=== PATIENT | male | born 1980 | race Caucasian/White ===

== ENCOUNTER 2024-04-15 09:54 | Emergency (ER) | payer OTHER, SELFPAY ==
--- NOTE | ~2024-04-15 | XR_ITS ---
EXAMINATION: XR chest 2V DATE: 04/15/2024 11:51 INDICATION: Shortness of breath. TECHNIQUE: Frontal and lateral views of the chest were obtained. COMPARISON: Chest CT 04/15/2024 FINDINGS: There is a 9 mm nodule in right lung middle lobe. No pleural effusion or pneumothorax. The heart size is normal. IMPRESSION: 1. 9 mm nodule in right lung middle lobe, which may be a hamartoma, granulomatous disease, or primary bronchogenic carcinoma. PET/CT or 3 month follow-up noncontrast low-dose chest CT is recommended. Reviewed, dictated and finalized at location A. IMPRESSION: 1. 9 mm nodule in right lung middle lobe, which may be a hamartoma, granulomato us disease, or primary bronchogenic carcinoma. PET/CT or 3 month follow-up nonc ontrast low-dose chest CT is recommended.
--- NOTE | ~2024-04-15 | CT_ITS ---
EXAMINATION: CTA chest PE protocol DATE: 04/15/2024 11:48 INDICATION: Dyspnea. TECHNIQUE: Computed tomography angiography (CTA) of the chest was performed with 100 mL Omnipaque-350 intravenous contrast timed to evaluate the pulmonary arteries. Coronal maximum intensity projection 3D-reconstructions were created by the technologist. Automated exposure control and iterative reconst ruction technique were employed. The dose-length product was 647.27 mGy-cm. COMPARISON: Chest 2 views 04/15/2024 FINDINGS: The lungs demonstrate mild dependent atelectasis. A calcified right lung nodule and calcifi ed right hilar lymph nodes are consistent with old granulomatous disease. There is a 9 mm nodule in r ight middle lobe. No pleural effusion. The heart size is normal. There are coronary artery calcificat ions. No pericardial effusion. Calcifications in the spleen are consistent with old granulomatous dis ease. There is no pulmonary embolus. There is mild thoracic spondylosis. IMPRESSION: 1. No pulmonary embolus. 2. 9 mm right middle lobe pulmonary nodule, which may be a hamartoma, granulomatous disease, or prima ry bronchogenic carcinoma. Consider PET/CT or 3 month follow-up noncontrast low-dose chest CT. Reviewed, dictated and finalized at location A. IMPRESSION: 1. No pulmonary embolus. 2. 9 mm right middle lobe pulmonary nodule, which may be a hamartoma, granuloma tous disease, or primary bronchogenic carcinoma. Consider PET/CT or 3 month fol low-up noncontrast low-dose chest CT.
[2024-04-15 10:06] VITALS: BP 183/106; PULSE 82; RESP 18; TEMP 36.5; O2SAT 98
--- NOTE | 2024-04-15 10:44 | ECG_ITS ---
Test Date: 2024-04-15 10:54:25 Measurements Intervals [place] Rate: 76 P: 24 VA: 175 QRS: -5 QRSD: 78 T: 50 QT: 367 QTc: 414 Interpretive Statements SINUS RHYTHM No previous ECG available for comparison Electronically Signed On 04-15-2024 15:36:50 CDT by Yecenia Avila M.D.
--- NOTE | 2024-04-15 10:52 | ED_ITS ---
HPI - SOB/Dyspnea General Chief Complaint: Shortness of Breath/Dyspnea Stated Complaint: sob, headache Time Seen by Provider: 04/15/24 10:29 Source: patient Mode of arrival: ambulatory Limitations: no limitations History of Present Illness HPI Narrative: This is a 43-year-old male with PMH of CAD, [place], s/p stent placement who presents to the ED for chief complaint of shortness of breath ongoing for the past 2 week s. Reports that he was seen by his county coroner and Jan this week who ordered outpatient labs. They told him to come to the ER after they came back abnormal. He states that he has had some burning in the lungs and a little bit of a cough but nothing productive. Denies any exertional component to the shortness of breath. Denies chest pain, leg swelling, history of blood clot, immobilization, palpitations. Also endorses some headache over the past 2 weeks attributes this to fluctuating blood pressures. Related Data Allergies Allergy/AdvReac Type Severity Reaction Status Date / Time No Known Allergies Allergy Verified 04/15/24 11:17 Review of Systems Review of Systems: All systems as dictated in HPI Exam Narrative: GENERAL: Well-appearing, well-nourished, and in no acute distress. HEAD: Normocephalic, atraumatic. EYES: PERRLA and EOMI. ENT: Nares clear, no rhinorrhea or epistaxis. Mucous membranes moist. Oropharynx without tonsillar hypertrophy exudate or other lesions. NECK: Supple. No adenopathy or masses. CHEST: No respiratory distress. Clear to auscultation. No wheezes rales or rhonchi HEART: Regular rate and rhythm. No murmur heard. Normal peripheral pulses. ABDOMEN: Soft, nontender, nondistended, normal active bowel sounds. MSK: Normal range of motion. No edema. SKIN: Warm, dry, no rash. NEURO: Alert and oriented x4. No focal deficits. PSYCH: Normal mood and affect. Course Vital Signs Vital signs: Vital Signs Temperature 97.7 F 04/15/24 10:06 Pulse Rate 82 04/15/24 10:06 Respiratory Rate 18 04/15/24 10:06 Blood Pressure 183/106 H 04/15/24 10:06 Pulse Oximetry 98 04/15/24 10:06 Oxygen Delivery Room Air 04/15/24 10:06 Temperature 97.9 F 04/15/24 13:22 Pulse Rate 78 04/15/24 13:22 Respiratory Rate 16 04/15/24 13:22 Blood Pressure 144/98 H 04/15/24 13:22 Pulse Oximetry 98 04/15/24 13:22 Oxygen Delivery Room Air 04/15/24 10:06 MDM - SOB/Dyspnea MDM Narrative Medical decision making narrative: This is a 43-year-old male who presents to the ED for chief complaint of shortness of breath and heaviness to the lungs for the past 2 weeks. He was here to rule out a blood clot due to outpatient elevated D-dimer. Vitals show elevated blood pressure initially but otherwise normal. No respiratory distress. Exam remarkable for the above. EKG shows normal sinus rhythm. lab work is unremarkable for us. Viral swabs negative. Went ahead and ordered the CTA due to the outpatient elevated D-dimer. CTA chest: IMPRESSION: 1. No pulmonary embolus. 2. 9 mm right middle lobe pulmonary nodule, which may be a hamartoma, granulomatous disease, or primary bronchogenic carcinoma. Consider PET/CT or 3 month follow-up noncontrast low-dose chest CT. discussed the above findings with the patient. We discussed that this nodule there may not be causing his symptoms today. He understands that he needs to follow-up with PCP on this issue. He feels ready to go home on re-evaluation. Patient will be discharged in stable condition. Supportive measures discussed and return precautions given. Patient is understanding and agreeable with plan for discharge with PCP follow-up. Lab Data 04/15/24 11:15 04/15/24 11:15 Labs: Lab Results 04/15/24 04/15/24 04/15/24 Range/Units 11:15 11:15 11:15 WBC 8.8 (4.5-10.0) K/mm3 RBC 5.00 (4.6-6.20) M/mm3 Hgb 14.8 (14.0-18.0) g/dL Hct 44.5 (42.0-52.0) % MCV 89.0 (80-100) fl MCH 29.6 (26-34) pg MCHC 33.3 (32-36) g/dl RDW 13.4 (11.5-14.5) % Plt Count 385 H (150-375) k/mm3 MPV 10.2 (7.4-10.4) fl Immature Gran % (Auto) 0.3 (0-0.5) % Neut % (Auto) 54.7 (45.5-73.1) % Lymph % (Auto) 28.3 (18.3-44.2) % Miller % (Auto) 9.7 H (2.6-8.5) % Eos % (Auto) 6.1 H (0-4.4) % Baso % (Auto) 0.9 (0.2-1.2) % Lymph # (Auto) 2.48 (0.9-3.2) K/mm3 Miller # (Auto) 0.9 H (0.1-0.6) K/mm3 Eos # (Auto) 0.5 H (0-0.3) K/mm3 Baso # (Auto) 0.1 (0.0-0.1) K/mm3 Abs Immat Gran (auto) 0.03 (0.00-0.031) K/mm3 Absolute Neuts (auto) 4.8 (1.3-6.7) K/mm3 Absolute Nucleated RBC 0.000 (0.0-0.012) K/mm3 Nucleated RBC % 0.0 (0.0-0.2) % Sodium 142 (137-145) mmol/L Potassium 4.0 (3.4-5.0) mmol/L Chloride 106 (98-107) mmol/L Carbon Dioxide 26 (22-30) mmol/L Anion Gap 10 (4-12) mmol/L BUN 16 (9-20) mg/dL Creatinine 0.70 (0.7-1.3) mg/dL Estim Creat Clear Calc 143 ml/min Estimated GFR > 60 (59 - ) Glucose 90 (65-110) mg/dL Calcium 9.1 (8.4-10.2) mg/dL Total Bilirubin 0.6 (0.2-1.3) mg/dL AST 26 (17-59) U/L ALT 25 (6-50) U/L Alkaline Phosphatase 75 (38-126) U/L Troponin I < 0.012 Cancelled (0.000-0.034) ng/mL NT-Pro-B Natriuret Pep 21 Cancelled (19.9-100) pg/mL Total Protein 8.0 (6.3-8.2) g/dL Albumin 4.3 (3.5-5.1) g/dL Influenza A (RT-PCR) Negative (Negative) Influenza B (RT-PCR) Negative (Negative) RSV (RT-PCR) Negative (Negative) SARS-CoV-2 RNA (RT-PCR) Negative (Negative) ECG Data EKG #1: ECG completion date: 04/15/24 ECG completion time: 10:54 Prior ECG tracings: available for review Interpretation: Sinus rhythm Rate 76 Normal QRS Normal QTC No acute ischemic findings Discharge Plan Discharge Clinical Impression: Lung nodule Patient Disposition: Home, Self-Care Condition: Stable Instructions: Antibiotic Form Additional Instructions: Your exam and imaging today do not show pulmonary embolism or other concerning findings. There is however a lung nodule on the right side that is 9 mm in needs to be re-evaluated to see if it is changing. Follow-up with PCP on this issue. If you have any new or worsening symptoms please return to the ER for further evaluation. Follow-up/Referrals: PHYSICIAN NOT ON STAFF,NONSTAFF [Non-Staff] - Faizan Wu MD [Physician] - Time of Disposition: 12:30
[2024-04-15 11:23] LABS: Basophils Absolute Auto 0.1 K/mm3 (0.0-0.1); Basophils Percent Auto 0.9 % (0.2-1.2); Eosinophils Absolute Auto 0.5 K/mm3 (0-0.3); Eosinophils Percent Auto 6.1 % (0-4.4); Hematocrit 44.5 % (42.0-52.0); Hemoglobin 14.8 g/dL (14.0-18.0); Immature Granulocyte Absolute 0.03 K/mm3 (0.00-0.031); Immature Granulocyte Percent A 0.3 % (0-0.5); Lymphocytes Absolute Auto 2.48 K/mm3 (0.9-3.2); Lymphocytes Percent Auto 28.3 % (18.3-44.2); Mean Corpuscular HGB Conc 33.3 g/dl (32-36); Mean Corpuscular Hemoglobin 29.6 pg (26-34); Mean Platelet Volume 10.2 fl (7.4-10.4); Monocytes Absolute Auto 0.9 K/mm3 (0.1-0.6); Monocytes Percent Auto 9.7 % (2.6-8.5); Neutrophils Absolute Auto 4.8 K/mm3 (1.3-6.7); Neutrophils Percent Auto 54.7 % (45.5-73.1); Platelet Count Result 385 k/mm3 (150-375); Red Cell Distribution Width 13.4 % (11.5-14.5); White Blood Count 8.8 K/mm3 (4.5-10.0)
[2024-04-15 11:35] LABS: Alanine Aminotransferase 25 U/L (6-50); Albumin Level 4.3 g/dL (3.5-5.1); Alkaline Phosphatase 75 U/L (38-126); Anion Gap 10 mmol/L (4-12); Aspartate Amino Transferase 26 U/L (17-59); Bilirubin,Total 0.6 mg/dL (0.2-1.3); Blood Urea Nitrogen 16 mg/dL (9-20); Calcium 9.1 mg/dL (8.4-10.2); Carbon Dioxide 26 mmol/L (22-30); Chloride 106 mmol/L (98-107); Estimated CRCL calculation 143 ml/min; Estimated Glomerular Filt Rate > 60; Glucose 90 mg/dL (65-110); Sodium 142 mmol/L (137-145)
[2024-04-15 11:52] LABS: NT Pro B Type Natriuretic Pept 21 pg/mL (19.9-100); Troponin I < 0.012 ng/mL (0.000-0.034)
[2024-04-15 11:59] LABS: Influenza A QL RT-PCR Negative (Negative); Influenza B QL RT-PCR Negative (Negative); RSV RNA, RT-PCR Negative (Negative); SARS-CoV-2 RNA PCR Negative (Negative)
[2024-04-15 13:22] VITALS: BP 144/98; PULSE 78; RESP 16; TEMP 36.6; O2SAT 98
== END 2024-04-15 13:24 | disposition home or self-care (01) ==
PROVIDERS: Emergency Provider Physician Assistant; PCP Internal Medicine
DX: R91.1 Solitary pulmonary nodule (principal); Z20.822 Contact with and (suspected) exposure to COVID-19; I25.10 Atherosclerotic heart disease of native coronary artery without angina pectoris; I25.2 Old myocardial infarction; Z95.5 Presence of coronary angioplasty implant and graft
CPT/HCPCS: 36415; 71046; 71275; 80053; 83880; 84484; 85025; 87637; 93005; 99284; Q9967